=== PATIENT | male | born 1970 | race Caucasian/White ===

== ENCOUNTER 2020-08-25 16:01 | Emergency (ER) | payer OTHER ==
[~2020-08-25] VITALS: Ht 193 cm; Wt 113.4 kg
[2020-08-25] MEDS ORDERED: LISINOPRIL10 MG PO (16:14)
[2020-08-25] MEDS ORDERED: XARELTO20 MG PO (16:14)
[2020-08-25] MEDS ORDERED: HYDROCHLOROTH12.5 MG PO (16:15)
[2020-08-25] MEDS ORDERED: VENTOLIN HFA18 GM INH (16:15)
--- NOTE | 2020-08-26 12:04 | EKG ---
[facility] [address] [facility] [address] [place], [place] [address] Signed Sinus tachycardia Otherwise normal ECG Confirmed by KRISTY MUÑOZ DO ([id number]) on 08/26/2020 12:04:31 PM Electronically Signed By: KRISTY MUÑOZ DO 08/26/20 1204 PATIENT NAME: ISHA WALKER Electrocardiogram DATE OF : 68 PHYSICIAN: KRISTY MUÑOZ DO REPORT #: [id number] REPORT IS CONFIDENTIAL AND NOT TO BE RELEASED WITHOUT AUTHORIZATION
== END 2020-08-25 18:10 | disposition home or self-care (01) ==
LOC: ED 16:01
DX: R07.81 Pleurodynia (principal); Z88.8 Allergy status to other drugs, medicaments and biological substances; Z79.899 Other long term (current) drug therapy
CPT/HCPCS: 71045; 80053; 83880; 84484; 85025; 93005; 93010; 99285-25